=== PATIENT | male | born 1995 | race Two or more races ===

== ENCOUNTER 2022-10-13 20:13 | Emergency (ER) | payer SELFPAY ==
[2022-10-13] MEDS ORDERED: predniSONE 20 MG Tab PO ONE (21:17)
[2022-10-13] MEDS ORDERED: Famotidine 20 MG Tab PO ONE (21:17)
[2022-10-13] MEDS ORDERED: diphenhydrAMINE 50 MG Cap PO ONE (21:18)
== END 2022-10-13 21:46 | disposition home or self-care (01) ==
LOC: MW.ED 20:13
DX: L25.9 Unspecified contact dermatitis, unspecified cause (principal); L50.9 Urticaria, unspecified
CPT/HCPCS: 99282; A9270; 99283